=== PATIENT | female | born 1980 | race Caucasian/White ===

== ENCOUNTER → 2024-02-18 | Outpatient (CLI) | payer MEDICARE, OTHER ==
[~2024-02-18] MED LIST: Bactrim 400-801 EACH PO; CICLODAN6.6 ML TP; HYDHCL10EL PO; L-LYSINE500 MG PO; LORA1 PO; Mupirocin22 GM TP; RISP.5 PO; SPIR25 PO
[2024-02-25 21:54] LABS: OVA AND PARASITE,FECAL INTERP Negative (Negative)
== END | disposition home or self-care (01) ==
LOC: LAB SHORT 08:55 → LAB 08:55
PROVIDERS: Nurse Practitioner Family
DX: R19.7 Diarrhea, unspecified (principal)
CPT/HCPCS: 87338